=== PATIENT | female | born 1955 | race Caucasian/White ===

== ENCOUNTER 2021-07-31 11:17 | Emergency (ER) | payer MEDICARE, OTHER ==
[2021-07-31] MEDS ORDERED: COLACE100 MG PO (11:50)
== END 2021-07-31 12:14 | disposition home or self-care (01) ==
LOC: FER 11:17
DX: K64.9 Unspecified hemorrhoids (principal); Z88.8 Allergy status to other drugs, medicaments and biological substances
CPT/HCPCS: 93005; 99283